=== PATIENT | female | born 1955 | race Two or more races ===

== ENCOUNTER 2017-11-05 13:18 | Emergency (ER) | payer OTHER ==
[~2017-11-05] VITALS: Ht 170.2 cm; Wt 69.4 kg
[~2017-11-05 13:18] MED LIST: CYMBALTA60 MG; GABAPENTIN400 MG; GLIMEPIRIDE4 MG; KETO10TA2 PO; METFORMIN HCL1000 M1; MOBIC7.5 M1; ORPH100T PO; PROTONIX40 MG; SULFAMETHOXAZOL1 TA6 PO; ZANAFLEX4 M1; ZOCOR20 MG
== END 2017-11-05 17:38 | disposition home or self-care (01) ==
LOC: ER 13:18
DX: L02.414 Cutaneous abscess of left upper limb (principal); B95.61 Methicillin susceptible Staphylococcus aureus infection as the cause of diseases classified elsewhere

== ENCOUNTER 2019-06-29 14:33 | Emergency (ER) | payer OTHER ==
[~2019-06-29] VITALS: Ht 170.2 cm; Wt 72.6 kg
[2019-06-29] MEDS ORDERED: VOLTAREN-XR100 MG (14:53)
[2019-06-29] MEDS ORDERED: GLUMETZA500 MG (14:54)
[2019-06-30] MEDS ORDERED: CEFUROXIME500 MG PO (07:54)
== END 2019-06-30 09:29 ==
LOC: ER 14:33
DX: L03.211 Cellulitis of face (principal); L02.01 Cutaneous abscess of face

== ENCOUNTER 2023-12-11 18:53 | Inpatient (IN) | payer OTHER ==
[~2023-12-11] VITALS: Ht 170.2 cm; Wt 159.7 kg
[~2023-12-11 18:53] MED LIST changes: +CEFUROXIME500 MG PO; +GLUMETZA500 MG; +VOLTAREN-XR100 MG
--- NOTE | 2023-12-11 19:16 | NUR ---
PTE ALERTA Y ORIENTADA X3 REFIERE ABCESO EN EL MUSLO ATRAS DE LA PIERNA [place]. SE OBSERVA AREA INFLAMADA, BOB Y CALIENTE AL TACTO. REFIERE QUE ESTUBO EN TRATAMIENTO DE CIPRO [place]DANA[place] POR DONG MEDICO. SE MIDEN S.V Y SE UBICA.
[2023-12-11] MEDS ORDERED: KETOROLAC TROMETHAMINE 60 MG VIAL IM ONE ×2 (20:00→20:30)
--- NOTE | 2023-12-11 20:38 | NUR ---
PTE EVALUADA POR LA DRA. PEREIRA. SE ORIENTA SOBRE TRATAMIENTO, VERBALIZA ENTENDER. SE CANALIZA, SE AVERY MUESTRAS DE LAB Y SE ADMINISTRAN MEDICAMENTO SULLY ORDEN MEDICA BAJO MEIDDAS ASEPTICAS.
[2023-12-11 20:39] LABS: HEMATOCRIT 35.4 % (36.0-45.00); HEMOGLOBIN 11.6 g/dL (12.0-15.00); MEAN CELL VOLUME 86.4 fL (80.00-100.00); MEAN CORPUSCULAR HEMOGLOBIN 28.4 pg (27.00-32.0); MEAN CORPUSCULAR HGB CONC 32.9 g/dl (32.0-36.0); PLATELET COUNT 282 K/uL (150-450); RED BLOOD COUNT 4.09 M/uL (4.00-6.00); RED CELL DISTRIBUTION WIDTH 14.9 % (11.5-14.5)
[2023-12-11 20:42] LABS: ERYTHROCYTE SEDIMENTATION RATE 51 mm/hr
[2023-12-11 20:59] LABS: BILIRUBIN TOTAL 0.4 mg/dL (0.3-1.2); CALCIUM 10.3 mg/dL (8.5-10.1); CREATININE SERUM 1.13 mg/dL (0.55-1.02); GFR 47.6; GLOBULINA 4.4 G/DL (2.4-3.5); POTASSIUM 4.35 mEq/L (3.5-5.1); TOTAL PROTEIN 8.4 gm/dL (6.4-8.2)
[2023-12-11 21:03] LABS: C-REACTIVE PROTEIN 6.41 MG/DL (0.00-0.29)
[2023-12-11 21:23] LABS: URINE BILIRRUBIN Negative (NEGATIVE); URINE BLOOD Negative; URINE COLOR Dark Yellow; URINE KETONE Trace (NEGATIVE); URINE LEUKOCYTE Small; URINE NITRATE Negative; URINE PROTEIN Trace (NEGATIVE)
[2023-12-11 21:24] LABS: URINE BACTERIA 1995.4 uL (0.0-1933); URINE EPITHELIAL CELLS 21.9 uL (0.0-38.8); URINE RBC 17.1 uL (0.0-20.8); URINE WBC 119.1 uL (0.0-23.2)
[2023-12-11 21:37] LABS: URINE CAST 0.91 uL (0.0-1.40); URINE GLUCOSE 100 MG/DL (NEGATIVE)
[2023-12-11 21:38] LABS: URINE APPEARANCE CLOUDY
[2023-12-11] MEDS ORDERED: VANCOMYCIN HCL 1,000 MG VIAL IV SCH (22:58)
[2023-12-11] MEDS ORDERED: CEFTRIAXONE SODIUM 2,000 MG in 0.9 % SODIUM CHLORIDE 100 ML IV SCH (22:58)
[2023-12-11] MEDS ORDERED: DEXTROSE 50 % IN WATER 0.5 G/ML DISP.SYRIN IV PRN (23:00)
[2023-12-11] MEDS ORDERED: 0.9 % SODIUM CHLORIDE 1,000 ML IV SCH (23:00)
[2023-12-11] MEDS ORDERED: INSULIN LISPRO 1,000 UNIT/10 ML UNITS SUBCUTANEO PRN (23:00)
[2023-12-11] MEDS ORDERED: ACETAMINOPHEN 500 MG GEL..CAP PO PRN (23:00)
[2023-12-11] MEDS ORDERED: CEFTRIAXONE SODIUM 2,000 MG VIAL ONE (23:33)
[2023-12-11] MEDS ORDERED: VANCOMYCIN HCL 1,000 MG VIAL ONE (23:33)
[2023-12-12] MEDS ORDERED: INSULIN LISPRO 1,000 UNIT/10 ML UNITS SUBCUTANEO ONE (00:28)
[2023-12-12 00:48] LABS: INR 1.01; PARTIAL THROMBOPLASTIN TIME 31.1 SECONDS (22.0-34.0)
[2023-12-12] MEDS ORDERED: GABAPENTIN 400 MG CAPSULE PO SCH (09:00)
[2023-12-12] MEDS ORDERED: FAMOTIDINE/PF 20 MG in 0.9 % SODIUM CHLORIDE 8 ML IV PUSH SCH (09:00)
[2023-12-12] MEDS ORDERED: ENOXAPARIN SODIUM 40 MG/0.4 ML SYRINGE SUBCUTANEO SCH (09:00)
[2023-12-12] MEDS ORDERED: Duloxetine HCl 60 MG CAPSULE.DR PO SCH (09:00)
[2023-12-12] MEDS ORDERED: MUPIROCIN 22 GM OINT..GM TUBE NASAL SCH (09:33)
[2023-12-12] MEDS ORDERED: FAMOTIDINE/PF 20 MG/2 ML VIAL ONE (10:25)
[2023-12-12] MEDS ORDERED: SIMVASTATIN 20 MG TABLET PO SCH (17:00)
[2023-12-12] MEDS ORDERED: INSULIN GLARGINE,HUM.REC.ANLOG 1,000 UNITS/10 ML UNITS SUBCUTANEO STA (21:46)
[2023-12-13 06:58] LABS: HEMATOCRIT 29.7 % (36.0-45.00); HEMOGLOBIN 9.7 g/dL (12.0-15.00); MEAN CELL VOLUME 86.5 fL (80.00-100.00); MEAN CORPUSCULAR HEMOGLOBIN 28.3 pg (27.00-32.0); MEAN CORPUSCULAR HGB CONC 32.7 g/dl (32.0-36.0); PLATELET COUNT 217 K/uL (150-450); RED BLOOD COUNT 3.44 M/uL (4.00-6.00); RED CELL DISTRIBUTION WIDTH 14.9 % (11.5-14.5)
[2023-12-13 07:31] LABS: ALBUMIN 2.9 gm/dL (3.4-5.0); BILIRUBIN TOTAL 0.45 mg/dL (0.3-1.2); CALCIUM 8.9 mg/dL (8.5-10.1); CREATININE SERUM 0.86 mg/dL (0.55-1.02); GFR 65.23; GLOBULINA 3.1 G/DL (2.4-3.5); MAGNESIUM 1.6 mg/dL (1.8-2.4); PHOSPHOROUS 3.3 mg/dL (2.5-4.9)
[2023-12-13 07:32] LABS: POTASSIUM 5.04 mEq/L (3.5-5.1)
[2023-12-13] MEDS ORDERED: FAMOTIDINE/PF 20 MG/2 ML VIAL ONE (07:49)
[2023-12-13] MEDS ORDERED: CEFAZOLIN SODIUM 2,000 MG in 0.9 % SODIUM CHLORIDE 100 ML IV SCH (17:00)
[2023-12-13] MEDS ORDERED: SODIUM CHLORIDE 0.45 % 1,000 ML IV SCH (20:15)
[2023-12-13] MEDS ORDERED: INSULIN GLARGINE,HUM.REC.ANLOG 1,000 UNITS/10 ML UNITS SUBCUTANEO SCH ×2 (21:00)
[2023-12-14 05:32] LABS: HEMATOCRIT 28.6 % (36.0-45.00); HEMOGLOBIN 9.6 g/dL (12.0-15.00); MEAN CELL VOLUME 85.7 fL (80.00-100.00); MEAN CORPUSCULAR HEMOGLOBIN 28.8 pg (27.00-32.0); MEAN CORPUSCULAR HGB CONC 33.6 g/dl (32.0-36.0); PLATELET COUNT 228 K/uL (150-450); RED BLOOD COUNT 3.34 M/uL (4.00-6.00); RED CELL DISTRIBUTION WIDTH 14.9 % (11.5-14.5)
[2023-12-14 05:53] LABS: ALBUMIN 2.8 gm/dL (3.4-5.0); BILIRUBIN TOTAL 0.26 mg/dL (0.3-1.2); CALCIUM 8.6 mg/dL (8.5-10.1); CREATININE SERUM 0.83 mg/dL (0.55-1.02); GFR 67.96; POTASSIUM 4.69 mEq/L (3.5-5.1); TOTAL PROTEIN 5.8 gm/dL (6.4-8.2)
[2023-12-14] MEDS ORDERED: FAMOTIDINE/PF 20 MG/2 ML VIAL ONE (08:16)
[2023-12-15] MEDS ORDERED: FAMOtidine 20 MG TABLET PO SCH (21:00)
[2023-12-16 11:12] LABS: ALBUMIN 3.1 gm/dL (3.4-5.0); BILIRUBIN TOTAL 0.24 mg/dL (0.3-1.2); CALCIUM 9.2 mg/dL (8.5-10.1); CREATININE SERUM 0.82 mg/dL (0.55-1.02); GFR 68.92; GLOBULINA 3.2 G/DL (2.4-3.5); POTASSIUM 4.01 mEq/L (3.5-5.1); TOTAL PROTEIN 6.3 gm/dL (6.4-8.2)
[2023-12-16] MEDS ORDERED: CEPHALEXIN500 M1 PO (14:06)
[2023-12-16] MEDS ORDERED: SIMVASTATIN20 MG PO (14:06)
[2023-12-16] MEDS ORDERED: MUPIROCIN22 GM NASAL (14:07)
[2023-12-16] MEDS ORDERED: NeuRONTin 400MG CAPS PO (14:07)
[2023-12-16] MEDS ORDERED: DULOXETINE HCL60 MG PO (14:07)
== END 2023-12-16 15:22 | disposition home or self-care (01) | DRG 854 ==
LOC: ER 18:55 → MEDJ 23:05
PROVIDERS: General Practice; Internal Medicine Nephrology; ADMIT Internal Medicine; ATTEND Internal Medicine
PROC: 0JDM0ZZ Extraction of Left Upper Leg Subcutaneous Tissue and Fascia, Open Approach (ICD-10-PCS; principal; 2023-12-12)
PROC: 0JDM0ZZ Extraction of Left Upper Leg Subcutaneous Tissue and Fascia, Open Approach (ICD-10-PCS; 2023-12-15)
DX: A41.9 Sepsis, unspecified organism (principal); E87.0 Hyperosmolality and hypernatremia; L03.116 Cellulitis of left lower limb; N17.9 Acute kidney failure, unspecified; L02.416 Cutaneous abscess of left lower limb; B95.61 Methicillin susceptible Staphylococcus aureus infection as the cause of diseases classified elsewhere; E86.0 Dehydration; D64.9 Anemia, unspecified; E78.5 Hyperlipidemia, unspecified; E11.65 Type 2 diabetes mellitus with hyperglycemia; Z79.4 Long term (current) use of insulin